=== PATIENT | male | born 1940 | race Caucasian/White ===

== ENCOUNTER → 2016-09-23 | Outpatient (REF) ==
[~2016-09-23] MED LIST: CLARITIN-D 24 H1 T24 PO; FLONASE NASAL S16 GM NS; LISINOPRIL10 MG PO; MIRAPEX 0.125MG; NIACIN 100100 MG/TAB PO; OXYCODONE5 M1 PO; PAROXETINE20 MG PO; PERCOCET 325 MG1 TA2 PO
== END ==
LOC: WSOH 13:02
DX: Z02.89 Encounter for other administrative examinations (principal)

== ENCOUNTER 2022-10-24 13:35 | Day surgery (SDC) | payer MEDICARE ==
[~2022-10-24] VITALS: Ht 172.7 cm; Wt 79.2 kg
--- NOTE | 2022-10-24 13:20 | NUR ---
The patient reported to the nurse that he fell at home this morning. He states that he "heard my head hit something" and "hit his arm". He does have visable brusing to his right forearm. The patient's states that "he fell hard" and she "heard it from the other room". Dr. Huertas was made aware of the patient's fall. The patient's states that he has been "short of breath" and "feeling crummy" which is why he went in to the doctor where he was found to have a HGB of "7 point something".
[~2022-10-24 13:35] MED LIST changes: -LISINOPRIL10 MG PO; +ZESTRIL 10MG10 MG PO
[2022-10-24 13:50] VITALS: BP 113/70; PULSE 81; TEMP 97.2
[2022-10-24] MEDS ORDERED: EFFEXOR-XR150 MG PO (13:59)
[2022-10-24] MEDS ORDERED: TOPROL XL 50MG50 MG PO (14:00)
[2022-10-24] MEDS ORDERED: LUNESTA3 MG PO (14:00)
[2022-10-24 15:20] VITALS: BP 95/58; PULSE 89; TEMP 97.2
[2022-10-24 15:35] VITALS: BP 111/64; PULSE 82
[2022-10-24 15:50] VITALS: BP 114/68; PULSE 79
--- NOTE | 2022-10-24 18:32 | NUR ---
[id number]: PT TO [facility] S/P EGD/COLON A&O, PLACED ON MONITOR, VS WDL ON RA, DENIES COMPLAINT, STEADY GAIT TO CHAIR RECEIVED REPORT AND ASSUMED CARE OF PT FROM [facility] RN SPOUSE/RIDE HOME AT BEDSIDE PROVIDED WATER AND MUFFIN REQUESTED, TOLERATING WELL MD IN TO SPEAK WITH PT. CLIP IMPLANT PAPERWORK GIVEN TO PT IN HIS DC PAPERWORK PT HAS REMAINED A&O, NAD, VSS ON RA, TOLERATING PO, IS WITHOUT SIGNIFICANT COMPLAINT, WITH STEADY GAIT THRU OUT STAY IV D/C'D. D/C INSTRUCTIONS, ANY FOLLOW UP REVIEWED AND HANDED TO PT. ALL QUESTIONS AND CONCERNS ADDRESSED TO PT SATISFACTION. TAKEN TO EXIT VIA W/C WITH ALL BELONGINGS AND PAPERWORK IN HAND, ASSISTED INTO PASSENGER SEAT OF POV. TO DRIVE HOME.
== END 2022-10-24 16:10 | disposition home or self-care (01) ==
LOC: SDCO 13:35
DX: D12.2 Benign neoplasm of ascending colon (principal); K25.4 Chronic or unspecified gastric ulcer with hemorrhage; K44.9 Diaphragmatic hernia without obstruction or gangrene; D50.0 Iron deficiency anemia secondary to blood loss (chronic); K57.30 Diverticulosis of large intestine without perforation or abscess without bleeding
CPT/HCPCS: J2704; J7120